=== PATIENT | female | born 1940 | race Caucasian/White ===

== ENCOUNTER → 2020-03-29 | Outpatient (CLI) | payer MEDICARE ==
[2020-03-29 14:11] LABS: BASO % 0.5 % (0.0-2.0); EOS # 0.1 (0.0-0.7); EOS % 1.6 % (0-4.0); GRAN # 2.8 (1.4-6.5); GRAN % 73.6 % (42.2-75.2); HEMOGLOBIN 11.3 g/dl (12.5-16.0); LYMPH # 0.5 (1.2-3.4); LYMPH % 13.1 % (20.0-51.0); MEAN CELL VOLUME 96 fl (80.0-100.0); MEAN CORPUSCULAR HEMOGLOBIN 32 pg (27.0-31.0); MEAN CORPUSCULAR HGB CONC 34 g/dl (33.0-37.0); MEAN PLATELET VOLUME 11.8 fl (7.4-10.4); MONO # 0.4 (0.1-0.6); MONO % 10.9 % (1.7-9.3); PLATELET COUNT 184 K/mm3 (130-400); RED BLOOD COUNT 3.49 M/mm3 (4.10-5.30); REDCELL DISTRIBUTION WIDTH-CV 13.9 % (11.5-14.5)
[2020-03-29 14:16] LABS: ALBUMIN 3.5 gm/dL (3.5-5.0); BILIRUBIN,TOTAL 0.8 mg/dL (0.0-1.0); CALCIUM 9.2 mg/dL (8.4-10.2); CREATININE, serum 0.79 (0.52-1.25); POTASSIUM 3.6 mmol/L (3.4-5.0); TOTAL PROTEIN 7.9 gm/dL (6.4-8.2)
[2020-03-29 14:18] LABS: HEMATOCRIT 33.4 % (37.0-47.0)
[2020-03-29 15:28] LABS: THYROID STIMULATING HORMONE 0.018 uIU/mL (0.465-4.680)
== END ==
LOC: ZLAB.STJ 13:29
PROVIDERS: Family Medicine
DX: D64.9 Anemia, unspecified (principal); E11.9 Type 2 diabetes mellitus without complications; E03.9 Hypothyroidism, unspecified; I10 Essential (primary) hypertension

== ENCOUNTER → 2020-05-03 | Outpatient (CLI) | payer MEDICARE ==
[2020-05-03 12:23] LABS: BILIRUBIN,TOTAL 0.7 mg/dL (0.0-1.0); CALCIUM 9.5 mg/dL (8.4-10.2); CREATININE, serum 0.84 (0.52-1.25); POTASSIUM 3.8 mmol/L (3.4-5.0); TOTAL PROTEIN 8.1 gm/dL (6.4-8.2)
== END ==
LOC: ZLAB.STJ 11:46
PROVIDERS: Family Medicine
DX: I10 Essential (primary) hypertension (principal)

== ENCOUNTER → 2020-06-04 | Outpatient (CLI) | payer MEDICARE ==
[2020-06-04 12:26] LABS: CALCIUM 9.1 mg/dL (8.4-10.2); CREATININE, serum 0.88 (0.52-1.25); POTASSIUM 4.6 mmol/L (3.4-5.0)
== END ==
LOC: ZLAB.STJ 11:55
PROVIDERS: Family Medicine
DX: E87.1 Hypo-osmolality and hyponatremia (principal)

== ENCOUNTER → 2020-07-25 | Outpatient (CLI) | payer MEDICARE, MEDICAID ==
[2020-07-25 11:56] LABS: BASO % 0.6 % (0.0-2.0); EOS # 0.1 (0.0-0.7); EOS % 3.6 % (0-4.0); GRAN # 2.6 (1.4-6.5); GRAN % 72.3 % (42.2-75.2); HEMOGLOBIN 11.2 g/dl (12.5-16.0); LYMPH # 0.4 (1.2-3.4); LYMPH % 10.2 % (20.0-51.0); MEAN CELL VOLUME 94 fl (80.0-100.0); MEAN CORPUSCULAR HEMOGLOBIN 32 pg (27.0-31.0); MEAN CORPUSCULAR HGB CONC 34 g/dl (33.0-37.0); MEAN PLATELET VOLUME 11.5 fl (7.4-10.4); MONO # 0.5 (0.1-0.6); PLATELET COUNT 194 K/mm3 (130-400); RED BLOOD COUNT 3.48 M/mm3 (4.10-5.30); REDCELL DISTRIBUTION WIDTH-CV 14.4 % (11.5-14.5)
[2020-07-25 12:02] LABS: ALBUMIN 3.7 gm/dL (3.5-5.0); BILIRUBIN,TOTAL 0.9 mg/dL (0.0-1.0); CALCIUM 9.3 mg/dL (8.4-10.2); CREATININE, serum 0.97 (0.52-1.25); POTASSIUM 3.7 mmol/L (3.4-5.0); TOTAL PROTEIN 7.8 gm/dL (6.4-8.2)
[2020-07-25 12:03] LABS: HEMATOCRIT 32.7 % (37.0-47.0)
== END ==
LOC: ZLAB.STJ 10:39
DX: I10 Essential (primary) hypertension (principal); L29.9 Pruritus, unspecified

== ENCOUNTER → 2020-09-14 | Outpatient (CLI) | payer MEDICARE, MEDICAID | LOC: ZLAB.STJ 11:59 | DX: D51.9 Vitamin B12 deficiency anemia, unspecified (principal) ==

== ENCOUNTER → 2020-09-28 | Outpatient (CLI) | payer MEDICARE, MEDICAID | LOC: ZLAB.STJ 13:17 | DX: E03.9 Hypothyroidism, unspecified (principal) ==

== ENCOUNTER → 2020-10-01 | Outpatient (CLI) | payer MEDICARE, MEDICAID ==
[2020-10-01 15:45] LABS: COLLECTION METHOD CLEAN CATCH
[2020-10-01 16:12] LABS: PH 5 (5-8); URINE APPEARANCE Cloudy; URINE BACTERIA Rare /hpf; URINE BILIRUBIN Negative (NEGATIVE); URINE BLOOD Negative (NEGATIVE); URINE COLOR Yellow; URINE GLUCOSE Negative (NEGATIVE); URINE KETONE Negative (NEGATIVE); URINE LEUKOCYTE ESTERASE 3+ (NEGATIVE); URINE NITRATE Positive (NEGATIVE); URINE PROTEIN(semi-quant) Negative (NEGATIVE); URINE UROBILINOGEN Negative (NEGATIVE)
== END ==
LOC: ZLAB.STJ 15:39
DX: N39.0 Urinary tract infection, site not specified (principal)

== ENCOUNTER → 2020-11-22 | Outpatient (CLI) | payer MEDICARE, MEDICAID ==
[2020-11-22 11:12] LABS: COLLECTION METHOD CLEAN CATCH
[2020-11-22 11:45] LABS: PH 8 (5-8); SQUAMOUS EPITHELIAL 0-2 /hpf; URINE APPEARANCE Cloudy; URINE BACTERIA Occasional /hpf; URINE BILIRUBIN Negative (NEGATIVE); URINE BLOOD Negative (NEGATIVE); URINE COLOR Yellow; URINE GLUCOSE Negative (NEGATIVE); URINE KETONE Negative (NEGATIVE); URINE LEUKOCYTE ESTERASE 3+ (NEGATIVE); URINE NITRATE Positive (NEGATIVE); URINE PROTEIN(semi-quant) Negative (NEGATIVE); URINE TRIPLE PHOSPHATE CRYSTAL Present /hpf; URINE UROBILINOGEN Negative (NEGATIVE)
== END ==
LOC: ZLAB.STJ 10:03
PROVIDERS: Family Medicine
DX: N39.0 Urinary tract infection, site not specified (principal)

== ENCOUNTER → 2021-01-01 | Outpatient (CLI) | payer MEDICARE, MEDICAID ==
[2021-01-01 12:50] LABS: BASO % 0.6 % (0.0-2.0); EOS # 0.1 (0.0-0.7); EOS % 2.4 % (0-4.0); GRAN # 2.4 (1.4-6.5); GRAN % 73.5 % (42.2-75.2); HEMOGLOBIN 12.3 g/dl (12.5-16.0); LYMPH # 0.2 (1.2-3.4); MEAN CELL VOLUME 96 fl (80.0-100.0); MEAN CORPUSCULAR HEMOGLOBIN 33 pg (27.0-31.0); MEAN CORPUSCULAR HGB CONC 34 g/dl (33.0-37.0); MEAN PLATELET VOLUME 11.3 fl (7.4-10.4); MONO # 0.5 (0.1-0.6); MONO % 16.2 % (1.7-9.3); PLATELET COUNT 153 K/mm3 (130-400); RED BLOOD COUNT 3.77 M/mm3 (4.10-5.30); REDCELL DISTRIBUTION WIDTH-CV 13.8 % (11.5-14.5)
[2021-01-01 13:03] LABS: HEMATOCRIT 36.1 % (37.0-47.0)
[2021-01-01 13:12] LABS: ALBUMIN 3.6 gm/dL (3.5-5.0); BILIRUBIN,TOTAL 0.8 mg/dL (0.0-1.0); CALCIUM 9.2 mg/dL (8.4-10.2); CREATININE, serum 0.76 (0.52-1.25); POTASSIUM 3.7 mmol/L (3.4-5.0); TOTAL PROTEIN 7.5 gm/dL (6.4-8.2)
[2021-01-01 13:42] LABS: THYROID STIMULATING HORMONE 0.032 uIU/mL (0.465-4.680)
== END ==
LOC: ZLAB.STJ 12:15
PROVIDERS: Family Medicine
DX: I10 Essential (primary) hypertension (principal); E03.9 Hypothyroidism, unspecified; E11.9 Type 2 diabetes mellitus without complications; D64.9 Anemia, unspecified

== ENCOUNTER → 2021-01-22 | Outpatient (CLI) | payer MEDICARE, MEDICAID ==
[2021-01-22 12:53] LABS: COLLECTION METHOD CLEAN CATCH
[2021-01-22 13:08] LABS: AMORPHOUS CRYSTAL Present /uL; MUCOUS Present /lpf; PH 6 (5-8); URINE APPEARANCE Cloudy; URINE BACTERIA Moderate /hpf; URINE BILIRUBIN Negative (NEGATIVE); URINE BLOOD Negative (NEGATIVE); URINE COLOR Yellow; URINE GLUCOSE Negative (NEGATIVE); URINE KETONE Negative (NEGATIVE); URINE LEUKOCYTE ESTERASE 3+ (NEGATIVE); URINE NITRATE Positive (NEGATIVE); URINE PROTEIN(semi-quant) Negative (NEGATIVE); URINE UROBILINOGEN Negative (NEGATIVE)
== END ==
LOC: ZLAB.STJ 12:33
PROVIDERS: Family Medicine
DX: N39.0 Urinary tract infection, site not specified (principal)

== ENCOUNTER → 2021-03-27 | Outpatient (CLI) | payer MEDICARE, MEDICAID ==
[2021-03-27 14:07] LABS: BASO % 0.8 % (0.0-2.0); EOS # 0.2 (0.0-0.7); GRAN # 2.5 (1.4-6.5); GRAN % 68.2 % (42.2-75.2); HEMATOCRIT 37.4 % (37.0-47.0); HEMOGLOBIN 12.6 g/dl (12.5-16.0); LYMPH # 0.5 (1.2-3.4); LYMPH % 13.6 % (20.0-51.0); MEAN CELL VOLUME 98 fl (80.0-100.0); MEAN CORPUSCULAR HEMOGLOBIN 33 pg (27.0-31.0); MEAN CORPUSCULAR HGB CONC 34 g/dl (33.0-37.0); MEAN PLATELET VOLUME 11.3 fl (7.4-10.4); MONO # 0.4 (0.1-0.6); MONO % 10.9 % (1.7-9.3); PLATELET COUNT 250 K/mm3 (130-400); RED BLOOD COUNT 3.82 M/mm3 (4.10-5.30); REDCELL DISTRIBUTION WIDTH-CV 13.9 % (11.5-14.5)
[2021-03-27 14:19] LABS: ALBUMIN 3.9 gm/dL (3.5-5.0); BILIRUBIN,TOTAL 0.5 mg/dL (0.0-1.0); CALCIUM 9.4 mg/dL (8.4-10.2); CREATININE, serum 0.84 (0.52-1.25); POTASSIUM 4.4 mmol/L (3.4-5.0); TOTAL PROTEIN 8.3 gm/dL (6.4-8.2)
[2021-03-27 15:08] LABS: THYROID STIMULATING HORMONE 0.314 uIU/mL (0.465-4.680)
== END ==
LOC: ZLAB.STJ 13:00
PROVIDERS: Family Medicine
DX: I10 Essential (primary) hypertension (principal); E03.9 Hypothyroidism, unspecified

== ENCOUNTER → 2021-06-18 | Outpatient (CLI) | payer MEDICARE, MEDICAID ==
[2021-06-18 11:30] LABS: BASO % 0.6 % (0.0-2.0); CALCIUM 9.1 mg/dL (8.4-10.2); CREATININE, serum 0.85 mg/dL (0.57-1.11); EOS # 0.1 K/mm3 (0.0-0.7); EOS % 4.5 % (0-4.0); GRAN # 2.3 K/mm3 (1.4-6.5); GRAN % 74.3 % (42.2-75.2); HEMOGLOBIN 11.8 g/dl (12.5-16.0); LYMPH # 0.3 K/mm3 (1.2-3.4); MEAN CELL VOLUME 97 fl (80.0-100.0); MEAN CORPUSCULAR HEMOGLOBIN 33 pg (27.0-31.0); MEAN CORPUSCULAR HGB CONC 34 g/dl (33.0-37.0); MEAN PLATELET VOLUME 11.6 fl (7.4-10.4); MONO # 0.4 K/mm3 (0.1-0.6); MONO % 11.3 % (1.7-9.3); PLATELET COUNT 197 K/mm3 (130-400); POTASSIUM 3.9 mmol/L (3.5-4.5); RED BLOOD COUNT 3.57 M/mm3 (4.10-5.30); REDCELL DISTRIBUTION WIDTH-CV 13.2 % (11.5-14.5)
[2021-06-18 11:31] LABS: HEMATOCRIT 34.5 % (37.0-47.0)
[2021-06-18 11:32] LABS: THYROID STIMULATING HORMONE 0.1 uIU/mL (0.350-4.940)
== END ==
LOC: ZLAB.STJ 11:07
PROVIDERS: Family Medicine
DX: I10 Essential (primary) hypertension (principal); E03.9 Hypothyroidism, unspecified; D64.9 Anemia, unspecified; E11.9 Type 2 diabetes mellitus without complications

== ENCOUNTER → 2021-06-25 | Outpatient (CLI) | payer MEDICARE, MEDICAID ==
[2021-06-25 14:28] LABS: COLLECTION METHOD CLEAN CATCH
[2021-06-25 14:40] LABS: PH 6 (5-8); URINE APPEARANCE Hazy; URINE BACTERIA Occasional /hpf; URINE BILIRUBIN Negative (NEGATIVE); URINE BLOOD Negative (NEGATIVE); URINE COLOR Yellow; URINE GLUCOSE Negative (NEGATIVE); URINE KETONE Negative (NEGATIVE); URINE LEUKOCYTE ESTERASE 1+ (NEGATIVE); URINE NITRATE Negative (NEGATIVE); URINE PROTEIN(semi-quant) Negative (NEGATIVE); URINE RBC 0-2 /hpf; URINE UROBILINOGEN Negative (NEGATIVE)
== END ==
LOC: ZLAB.STJ 13:36
PROVIDERS: Family Medicine
DX: N39.0 Urinary tract infection, site not specified (principal)

== ENCOUNTER → 2021-06-30 | Outpatient (CLI) | payer MEDICARE, MEDICAID ==
[2021-06-30 17:07] LABS: COLLECTION METHOD CLEAN CATCH
[2021-06-30 17:17] LABS: PH 7 (5-8); SQUAMOUS EPITHELIAL 0-2 /hpf (0-10); URINE APPEARANCE Clear (CLEAR/HAZY); URINE BACTERIA None Seen (NONE SEEN); URINE BILIRUBIN Negative (NEGATIVE); URINE BLOOD Negative (NEGATIVE); URINE COLOR Yellow (YELLOW); URINE GLUCOSE Negative (NEGATIVE); URINE KETONE Negative (NEGATIVE); URINE LEUKOCYTE ESTERASE Negative (NEGATIVE); URINE NITRATE Negative (NEGATIVE); URINE PROTEIN(semi-quant) Negative (NEGATIVE); URINE RBC 0-2 /hpf (0-2); URINE UROBILINOGEN Negative (NEGATIVE)
== END ==
LOC: ZLAB.STJ 15:49
PROVIDERS: Family Medicine
DX: R31.9 Hematuria, unspecified (principal)

== ENCOUNTER → 2021-07-26 | Outpatient (CLI) | payer MEDICARE, MEDICAID ==
[2021-07-26 17:40] LABS: BASO % 0.6 % (0.0-2.0); EOS # 0.1 K/mm3 (0.0-0.7); EOS % 2.8 % (0.0-4.0); GRAN # 2.5 K/mm3 (1.4-6.5); GRAN % 70.4 % (42.2-75.2); HEMOGLOBIN 11.8 g/dl (12.5-16.0); LYMPH # 0.3 K/mm3 (1.2-3.4); LYMPH % 8.9 % (20.0-51.0); MEAN CELL VOLUME 98 fl (80.0-100.0); MEAN CORPUSCULAR HEMOGLOBIN 33 pg (27-31); MEAN CORPUSCULAR HGB CONC 34 g/dl (33.0-37.0); MEAN PLATELET VOLUME 11.4 fl (7.4-10.4); MONO # 0.6 K/mm3 (0.1-0.6); PLATELET COUNT 213 K/mm3 (130-400); RED BLOOD COUNT 3.57 M/mm3 (4.10-5.30)
[2021-07-26 17:50] LABS: ALANINE AMINOTRANSFERASE 15 U/L (0-55); ALBUMIN 3.4 gm/dL (3.4-4.8); ALKALINE PHOSPHATASE 148 U/L (40-150); ANION GAP 10 mmol/L (7-16); AST,SGOT 27 U/L (5-34); BILIRUBIN,TOTAL 0.8 mg/dL (0.2-1.2); BLOOD UREA NITROGEN 14 mg/dL (10-20); CALCIUM 8.9 mg/dL (8.4-10.2); CARBON DIOXIDE 22 mmol/L (23-31); CHLORIDE 98 mmol/L (98-107); CREATININE, serum 0.95 mg/dL (0.57-1.11); GLUCOSE 82 mg/dL (70-99); POTASSIUM 3.9 mmol/L (3.5-4.5); SODIUM 130 mmol/L (136-145); TOTAL PROTEIN 7.8 gm/dL (6.2-8.1)
== END ==
LOC: ZLAB.STJ 16:55
PROVIDERS: Family Medicine
DX: D64.9 Anemia, unspecified (principal); E11.9 Type 2 diabetes mellitus without complications

== ENCOUNTER → 2021-08-15 | Outpatient (CLI) | payer MEDICARE, MEDICAID ==
[2021-08-15 09:38] LABS: COLLECTION METHOD CLEAN CATCH
[2021-08-15 10:08] LABS: MUCOUS Present (NOT PRESENT); PH 8 (5-8); SQUAMOUS EPITHELIAL 0-2 /hpf (0-10); URINE APPEARANCE Cloudy (CLEAR/HAZY); URINE BACTERIA Rare /hpf (NONE SEEN); URINE BILIRUBIN Negative (NEGATIVE); URINE BLOOD Negative (NEGATIVE); URINE COLOR Yellow (YELLOW); URINE GLUCOSE Negative (NEGATIVE); URINE KETONE Negative (NEGATIVE); URINE LEUKOCYTE ESTERASE 3+ (NEGATIVE); URINE NITRATE Positive (NEGATIVE); URINE PROTEIN(semi-quant) Negative (NEGATIVE); URINE UROBILINOGEN Negative (NEGATIVE)
== END ==
LOC: ZLAB.STJ 09:35
PROVIDERS: Internal Medicine
DX: N39.0 Urinary tract infection, site not specified (principal)

== ENCOUNTER → 2021-08-19 | Outpatient (CLI) | payer MEDICARE, MEDICAID ==
[2021-08-19 15:40] LABS: ALBUMIN 3.5 gm/dL (3.4-4.8); BILIRUBIN,TOTAL 0.6 mg/dL (0.2-1.2); CALCIUM 8.8 mg/dL (8.4-10.2); CREATININE, serum 1.32 mg/dL (0.57-1.11); POTASSIUM 4.2 mmol/L (3.5-4.5); TOTAL PROTEIN 7.5 gm/dL (6.2-8.1)
[2021-08-19 16:00] LABS: THYROID STIMULATING HORMONE 1.116 uIU/mL (0.350-4.940)
== END ==
LOC: ZLAB.STJ 13:20
PROVIDERS: Internal Medicine
DX: E03.9 Hypothyroidism, unspecified (principal); I10 Essential (primary) hypertension; D64.9 Anemia, unspecified

== ENCOUNTER → 2021-09-24 | Outpatient (CLI) | payer MEDICARE, MEDICAID ==
[2021-09-24 10:09] LABS: POTASSIUM 4.2 mmol/L (3.5-4.5)
[2021-09-24 10:30] LABS: THYROID STIMULATING HORMONE 2.391 uIU/mL (0.350-4.940)
== END ==
LOC: ZLAB.STJ 09:24
PROVIDERS: Internal Medicine
DX: I10 Essential (primary) hypertension (principal); E03.9 Hypothyroidism, unspecified

== ENCOUNTER → 2021-10-18 | Outpatient (CLI) | payer MEDICARE, MEDICAID ==
[2021-10-18 09:31] LABS: COLLECTION METHOD CLEAN CATCH
[2021-10-18 09:55] LABS: MUCOUS Present (NOT PRESENT); PH 9 (5-8); SQUAMOUS EPITHELIAL 20-50 /hpf (0-10); URINE APPEARANCE Cloudy (CLEAR/HAZY); URINE BACTERIA Rare /hpf (NONE SEEN); URINE BILIRUBIN Negative (NEGATIVE); URINE BLOOD Negative (NEGATIVE); URINE COLOR Yellow (YELLOW); URINE GLUCOSE Negative (NEGATIVE); URINE KETONE Negative (NEGATIVE); URINE LEUKOCYTE ESTERASE 3+ (NEGATIVE); URINE NITRATE Negative (NEGATIVE); URINE PROTEIN(semi-quant) Negative (NEGATIVE); URINE UROBILINOGEN Negative (NEGATIVE)
== END ==
LOC: ZLAB.STJ 09:15
PROVIDERS: Internal Medicine
DX: N39.0 Urinary tract infection, site not specified (principal)

== ENCOUNTER → 2021-10-22 | Outpatient (CLI) | payer MEDICARE, MEDICAID ==
[2021-10-22 16:29] LABS: PH 7 (5-8); URINE APPEARANCE Cloudy (CLEAR/HAZY); URINE BACTERIA Rare /hpf (NONE SEEN); URINE BILIRUBIN Negative (NEGATIVE); URINE BLOOD Negative (NEGATIVE); URINE COLOR Yellow (YELLOW); URINE GLUCOSE Negative (NEGATIVE); URINE KETONE Negative (NEGATIVE); URINE LEUKOCYTE ESTERASE 3+ (NEGATIVE); URINE NITRATE Negative (NEGATIVE); URINE PROTEIN(semi-quant) Negative (NEGATIVE); URINE RBC 0-2 /hpf (0-2); URINE UROBILINOGEN Negative (NEGATIVE)
[2021-10-22 17:01] LABS: COLLECTION METHOD CLEAN CATCH
== END ==
LOC: ZLAB.STJ 15:17
PROVIDERS: Internal Medicine
DX: N39.0 Urinary tract infection, site not specified (principal)

== ENCOUNTER → 2021-10-23 | Outpatient (CLI) | payer MEDICARE, MEDICAID ==
[2021-10-23 13:13] LABS: CREATININE, serum 1.1 mg/dL (0.57-1.11); POTASSIUM 4.2 mmol/L (3.5-4.5)
== END ==
LOC: ZLAB.STJ 12:44
PROVIDERS: Internal Medicine
DX: I10 Essential (primary) hypertension (principal)

== ENCOUNTER → 2021-11-01 | Outpatient (CLI) | payer MEDICARE, MEDICAID ==
[2021-11-01 12:40] LABS: ALBUMIN 3.3 gm/dL (3.4-4.8); BASO % 0.4 % (0.0-2.0); BILIRUBIN,TOTAL 0.6 mg/dL (0.2-1.2); CREATININE, serum 1.08 mg/dL (0.57-1.11); EOS # 0.1 K/mm3 (0.0-0.7); EOS % 1.6 % (0.0-4.0); GRAN % 81.9 % (42.2-75.2); HEMOGLOBIN 11.8 g/dl (12.5-16.0); LYMPH # 0.3 K/mm3 (1.2-3.4); LYMPH % 5.8 % (20.0-51.0); MEAN CELL VOLUME 100 fl (80.0-100.0); MEAN CORPUSCULAR HEMOGLOBIN 34 pg (27-31); MEAN CORPUSCULAR HGB CONC 34 g/dl (33.0-37.0); MEAN PLATELET VOLUME 11.9 fl (7.4-10.4); MONO # 0.5 K/mm3 (0.1-0.6); MONO % 9.9 % (1.7-9.3); PLATELET COUNT 166 K/mm3 (130-400)
[2021-11-01 12:41] LABS: HEMATOCRIT 34.9 % (37.0-47.0)
== END ==
LOC: ZLAB.STJ 12:34
PROVIDERS: Internal Medicine
DX: Z13.228 Encounter for screening for other metabolic disorders (principal); R79.9 Abnormal finding of blood chemistry, unspecified

== ENCOUNTER → 2021-12-10 | Outpatient (CLI) | payer MEDICARE, MEDICAID | LOC: ZLAB.STJ 10:29 | DX: D51.9 Vitamin B12 deficiency anemia, unspecified (principal) ==

== ENCOUNTER → 2021-12-31 | Outpatient (CLI) | payer MEDICARE, MEDICAID | LOC: ZLAB.STJ 09:13 | DX: E11.9 Type 2 diabetes mellitus without complications (principal) ==

== ENCOUNTER 2022-02-08 17:47 | Emergency (ER) | payer MEDICARE, MEDICAID ==
[~2022-02-08] VITALS: Ht 170.2 cm; Wt 74.5 kg
[2022-02-08 17:50] VITALS: TEMP 97.2
[2022-02-08 18:52] LABS: BASO % 0.7 % (0.0-2.0); EOS # 0.1 K/mm3 (0.0-0.7); GRAN # 2.2 K/mm3 (1.4-6.5); GRAN % 73.8 % (42.2-75.2); HEMOGLOBIN 11.8 g/dl (12.5-16.0); LYMPH # 0.4 K/mm3 (1.2-3.4); LYMPH % 12.8 % (20.0-51.0); MEAN CELL VOLUME 95 fl (80.0-100.0); MEAN CORPUSCULAR HEMOGLOBIN 33 pg (27-31); MEAN CORPUSCULAR HGB CONC 35 g/dl (33.0-37.0); MEAN PLATELET VOLUME 9.7 fl (7.4-10.4); MONO # 0.3 K/mm3 (0.1-0.6); MONO % 10.4 % (1.7-9.3); PLATELET COUNT 176 K/mm3 (130-400); RED BLOOD COUNT 3.53 M/mm3 (4.10-5.30); REDCELL DISTRIBUTION WIDTH-CV 13.3 % (11.5-14.5)
[2022-02-08 18:57] LABS: HEMATOCRIT 33.5 % (37.0-47.0)
[2022-02-08 19:06] LABS: ALBUMIN 3.2 gm/dL (3.4-4.8); BILIRUBIN,TOTAL 0.6 mg/dL (0.2-1.2); C-REACTIVE PROTEIN 0.33 mg/dL (0.00-0.50); CREATININE, serum 1.05 mg/dL (0.57-1.11); POTASSIUM 3.9 mmol/L (3.5-4.5); TOTAL PROTEIN 7.7 gm/dL (6.2-8.1)
[2022-02-08 19:19] LABS: COLLECTION METHOD CATHETER
[2022-02-08 19:28] LABS: PH 8 (5-8); URINE APPEARANCE Hazy (CLEAR/HAZY); URINE BACTERIA None Seen /hpf (NONE SEEN); URINE BILIRUBIN Negative (NEGATIVE); URINE BLOOD Negative (NEGATIVE); URINE COLOR Yellow (YELLOW); URINE GLUCOSE Negative (NEGATIVE); URINE KETONE Negative (NEGATIVE); URINE LEUKOCYTE ESTERASE Negative (NEGATIVE); URINE NITRATE Negative (NEGATIVE); URINE PROTEIN(semi-quant) Negative (NEGATIVE); URINE RBC None Seen /hpf (0-2); URINE UROBILINOGEN Negative (NEGATIVE)
[2022-02-08 20:10] VITALS: BP 178/90; PULSE 60
== END 2022-02-08 20:13 | disposition home or self-care (01) ==
LOC: COL.ER 17:47
PROVIDERS: Nurse Practitioner
DX: R41.0 Disorientation, unspecified (principal); Z87.891 Personal history of nicotine dependence; Z20.822 Contact with and (suspected) exposure to COVID-19
CPT/HCPCS: J7030

== ENCOUNTER → 2022-02-13 | Outpatient (CLI) | payer MEDICARE, MEDICAID ==
[2022-02-13 15:49] LABS: CALCIUM 9.1 mg/dL (8.4-10.2); CREATININE, serum 1.06 mg/dL (0.57-1.11); POTASSIUM 3.6 mmol/L (3.5-4.5)
== END ==
LOC: ZLAB.STJ 15:34
PROVIDERS: Internal Medicine
DX: E78.5 Hyperlipidemia, unspecified (principal)

== ENCOUNTER → 2022-03-06 | Outpatient (CLI) | payer MEDICARE, MEDICAID ==
[~2022-03-06] MED LIST: B-12 500 MCG PO; CEPHALEXIN500 M1 PO; CLOTRIMAZOLE ANTIF1% TP; COLACE 100100 MG/CAP PO; FOLIC ACID 11 MG/TA1 PO; FOSAMAX 70MG TA70 MG PO; HYDROCIL INSTA300 GM PO; HYDROCORTISONE30 G3 TP; HYGROTON 2525 MG/TAB PO; LEVAQUIN 750MG750 M1 PO; LIPITOR 40MG TA40 MG PO; METHOTREXA2.5 MG/TAB PO; MILK OF MA400 MG/52 PO; MIRALAX PA17 GM/Dose PO; PREMARIN VAG42.5 GM VG; PRIL40 PO; PRINIVIL5 MG PO; REQUIP 1MG T1 MG/TAB PO; SALAGEN 5MG TAB5 MG PO; TIROSINT50 MC1 PO; TOPROL XL 25MG25 MG PO; TRIAMCINOLONE A15 GM TP; TUMS500 MG PO; TYLENOL 325MG325 MG PO; VITAMIN D31000 IU PO; ZOFRAN 4MG T4 MG/TAB PO
[2022-03-06 17:27] LABS: BASO % 0.1 % (0.0-2.0); EOS % 0.2 % (0.0-4.0); GRAN # 7.8 K/mm3 (1.4-6.5); GRAN % 86.6 % (42.2-75.2); HEMOGLOBIN 12.5 g/dl (12.5-16.0); LYMPH # 0.6 K/mm3 (1.2-3.4); LYMPH % 6.3 % (20.0-51.0); MEAN CELL VOLUME 97 fl (80.0-100.0); MEAN CORPUSCULAR HEMOGLOBIN 34 pg (27-31); MEAN CORPUSCULAR HGB CONC 35 g/dl (33.0-37.0); MEAN PLATELET VOLUME 11.9 fl (7.4-10.4); MONO # 0.5 K/mm3 (0.1-0.6); MONO % 5.8 % (1.7-9.3); PLATELET COUNT 172 K/mm3 (130-400); RED BLOOD COUNT 3.71 M/mm3 (4.10-5.30); REDCELL DISTRIBUTION WIDTH-CV 13.7 % (11.5-14.5)
[2022-03-06 17:30] LABS: HEMATOCRIT 35.8 % (37.0-47.0)
[2022-03-06 17:41] LABS: C-REACTIVE PROTEIN 0.16 mg/dL (0.00-0.50); CREATININE, serum 1.13 mg/dL (0.57-1.11)
[2022-03-06 17:52] LABS: ERYTHROCYTE SEDIMENTATION RATE 26 mm/hr (0-30)
[2022-03-07 16:45] LABS: HEPATITIS B SURFACE ANTIBODY 86.9 (()); HEPATITIS B SURFACE ANTIGEN Negative (Negative); HEPATITIS C VIRUS ANTIBODY Negative (Negative)
[2022-03-07 19:58] LABS: COMPLEMENT-C3 99 mg/dL (83-193); COMPLEMENT-C4 21 mg/dL (15-57)
[2022-03-11 14:31] LABS: A/G RATIO (PEP) 0.78 (()); BETA GLOBULINS (PEP) 0.9 g/dL (0.7-1.2)
== END ==
LOC: ZLAB.STJ 16:31
PROVIDERS: Internal Medicine Rheumatology
DX: M35.00 Sjogren syndrome, unspecified (principal)

== ENCOUNTER → 2022-03-19 | Outpatient (CLI) | payer MEDICARE, MEDICAID | LOC: ZLAB.STJ 10:34 | DX: M35.00 Sjogren syndrome, unspecified (principal) ==

== ENCOUNTER 2022-03-20 06:08 | Emergency (ER) | payer MEDICARE, MEDICAID ==
[~2022-03-20] VITALS: Ht 165.1 cm; Wt 81.8 kg
[2022-03-20 06:11] VITALS: TEMP 99.2
[2022-03-20 06:29] LABS: COLLECTION METHOD CATHETER
[2022-03-20 06:46] LABS: URINE BACTERIA Rare /hpf (NONE SEEN); URINE RBC 0-2 /hpf (0-2)
[2022-03-20 06:51] LABS: ALBUMIN 3.1 gm/dL (3.4-4.8); BILIRUBIN,TOTAL 0.7 mg/dL (0.2-1.2); CREATININE, serum 1.05 mg/dL (0.57-1.11); POTASSIUM 3.5 mmol/L (3.5-4.5); TOTAL PROTEIN 6.9 gm/dL (6.2-8.1)
[2022-03-20 06:52] LABS: URINE COLOR Yellow (YELLOW)
[2022-03-20 06:53] LABS: PH 7 (5-8); URINE APPEARANCE Hazy (CLEAR/HAZY); URINE BLOOD Negative (NEGATIVE); URINE GLUCOSE Negative (NEGATIVE); URINE KETONE Negative (NEGATIVE); URINE NITRATE Negative (NEGATIVE); URINE PROTEIN(semi-quant) Negative (NEGATIVE); URINE UROBILINOGEN Negative (NEGATIVE)
[2022-03-20] MEDS ORDERED: CEPHALEXIN500 M1 PO (06:58)
[2022-03-20 07:07] LABS: BASO % 0.4 % (0.0-2.0); EOS # 0.1 K/mm3 (0.0-0.7); EOS % 0.8 % (0.0-4.0); GRAN # 6.4 K/mm3 (1.4-6.5); GRAN % 83.1 % (42.2-75.2); HEMOGLOBIN 11.8 g/dl (12.5-16.0); LYMPH # 0.4 K/mm3 (1.2-3.4); MEAN CELL VOLUME 97 fl (80.0-100.0); MEAN CORPUSCULAR HEMOGLOBIN 34 pg (27-31); MEAN CORPUSCULAR HGB CONC 35 g/dl (33.0-37.0); MEAN PLATELET VOLUME 10.6 fl (7.4-10.4); MONO # 0.8 K/mm3 (0.1-0.6); MONO % 10.3 % (1.7-9.3); PLATELET COUNT 150 K/mm3 (130-400); RED BLOOD COUNT 3.47 M/mm3 (4.10-5.30); REDCELL DISTRIBUTION WIDTH-CV 13.5 % (11.5-14.5)
[2022-03-20 07:22] LABS: HEMATOCRIT 33.7 % (37.0-47.0)
[2022-03-20 07:26] VITALS: BP 151/78; PULSE 61
[2022-03-20] MEDS ORDERED: LIPITOR 40MG TA40 MG PO (19:23)
[2022-03-20] MEDS ORDERED: HYGROTON 2525 MG/TAB PO (19:24)
[2022-03-20] MEDS ORDERED: FOLIC ACID 11 MG/TA1 PO (19:24)
[2022-03-20] MEDS ORDERED: SALAGEN 5MG TAB5 MG PO (19:25)
[2022-03-20] MEDS ORDERED: PRIL40 PO (19:26)
[2022-03-20] MEDS ORDERED: TYLENOL 325MG325 MG PO (19:26)
[2022-03-20] MEDS ORDERED: COLACE 100100 MG/CAP PO (19:30)
[2022-03-20] MEDS ORDERED: MIRALAX PA17 GM/Dose PO (19:30)
[2022-03-20] MEDS ORDERED: TIROSINT50 MC1 PO (19:31)
[2022-03-20] MEDS ORDERED: VITAMIN D31000 IU PO (19:38)
[2022-03-20] MEDS ORDERED: REQUIP 1MG T1 MG/TAB PO (19:38)
[2022-03-20] MEDS ORDERED: B-12 500 MCG PO (19:42)
[2022-03-20] MEDS ORDERED: FOSAMAX 70MG TA70 MG PO (19:43)
[2022-03-20] MEDS ORDERED: METHOTREXA2.5 MG/TAB PO (19:44)
[2022-03-20] MEDS ORDERED: TOPROL XL 25MG25 MG PO (19:44)
[2022-03-20] MEDS ORDERED: PREMARIN VAG42.5 GM VG (19:59)
[2022-03-20] MEDS ORDERED: HYDROCIL INSTA300 GM PO (20:01)
[2022-03-20] MEDS ORDERED: TRIAMCINOLONE A15 GM TP (20:02)
[2022-03-20] MEDS ORDERED: MILK OF MA400 MG/52 PO (20:04)
[2022-03-20] MEDS ORDERED: TUMS500 MG PO (20:07)
[2022-03-20] MEDS ORDERED: ZOFRAN 4MG T4 MG/TAB PO (20:08)
[2022-03-20] MEDS ORDERED: HYDROCORTISONE30 G3 TP (20:08)
[2022-03-20] MEDS ORDERED: CLOTRIMAZOLE ANTIF1% TP (20:09)
== END 2022-03-20 07:45 | disposition home or self-care (01) ==
LOC: COL.ER 06:08
PROVIDERS: Personal Emergency Response Attendant
DX: N39.0 Urinary tract infection, site not specified (principal); R41.82 Altered mental status, unspecified; Z20.822 Contact with and (suspected) exposure to COVID-19; Z87.891 Personal history of nicotine dependence
CPT/HCPCS: J0696; J2405

== ENCOUNTER 2022-03-20 13:59 | Inpatient (IN) | payer MEDICARE, MEDICAID ==
[~2022-03-20] VITALS: Wt 88.6 kg
[~2022-03-20 13:59] MED LIST changes: -B-12 500 MCG PO; -CLOTRIMAZOLE ANTIF1% TP; -COLACE 100100 MG/CAP PO; -FOLIC ACID 11 MG/TA1 PO; -FOSAMAX 70MG TA70 MG PO; -HYDROCIL INSTA300 GM PO; -HYDROCORTISONE30 G3 TP; -HYGROTON 2525 MG/TAB PO; -LEVAQUIN 750MG750 M1 PO; -LIPITOR 40MG TA40 MG PO; -METHOTREXA2.5 MG/TAB PO; -MILK OF MA400 MG/52 PO; -MIRALAX PA17 GM/Dose PO; -PREMARIN VAG42.5 GM VG; -PRIL40 PO; -PRINIVIL5 MG PO; -REQUIP 1MG T1 MG/TAB PO; -SALAGEN 5MG TAB5 MG PO; -TIROSINT50 MC1 PO; -TOPROL XL 25MG25 MG PO; -TRIAMCINOLONE A15 GM TP; -TUMS500 MG PO; -TYLENOL 325MG325 MG PO; -VITAMIN D31000 IU PO; -ZOFRAN 4MG T4 MG/TAB PO
[2022-03-20 14:25] LABS: BASO % 0.5 % (0.0-2.0); EOS # 0.1 K/mm3 (0.0-0.7); EOS % 0.8 % (0.0-4.0); GRAN # 5.3 K/mm3 (1.4-6.5); GRAN % 81.8 % (42.2-75.2); HEMOGLOBIN 11.2 g/dl (12.5-16.0); LYMPH # 0.4 K/mm3 (1.2-3.4); LYMPH % 5.9 % (20.0-51.0); MEAN CELL VOLUME 95 fl (80.0-100.0); MEAN CORPUSCULAR HEMOGLOBIN 34 pg (27-31); MEAN CORPUSCULAR HGB CONC 35 g/dl (33.0-37.0); MEAN PLATELET VOLUME 11.5 fl (7.4-10.4); MONO # 0.7 K/mm3 (0.1-0.6); MONO % 10.5 % (1.7-9.3); PLATELET COUNT 138 K/mm3 (130-400); RED BLOOD COUNT 3.32 M/mm3 (4.10-5.30); REDCELL DISTRIBUTION WIDTH-CV 13.7 % (11.5-14.5)
[2022-03-20 14:27] LABS: HEMATOCRIT 31.6 % (37.0-47.0)
[2022-03-20 14:44] LABS: ALBUMIN 2.9 gm/dL (3.4-4.8); BILIRUBIN,TOTAL 0.8 mg/dL (0.2-1.2); CALCIUM 8.4 mg/dL (8.4-10.2); CREATININE, serum 0.97 mg/dL (0.57-1.11); INR 1.1 (0.8-3.0); POTASSIUM 3.8 mmol/L (3.5-4.5); PROTHROMBIN TIME 12.8 SECONDS (9.7-12.8); TOTAL PROTEIN 6.7 gm/dL (6.2-8.1)
[2022-03-20 14:46] LABS: PARTIAL THROMBOPLASTIN TIME 27.4 SECONDS (26.0-37.0)
[2022-03-20 14:52] LABS: TROPONIN-I 0.076 ng/mL (0.00-0.033)
[2022-03-20 17:41] VITALS: BP 146/85; PULSE 57; TEMP 100.3
--- NOTE | 2022-03-20 17:46 | NUR ---
PT IN ROOM 312, PT FEBRILE, OTHER VSS, PT RESTING IN BED, 2L NC, PT ORIENTED TO ROOM, CALL LIGHT IN REACH, FALL PRECAUTIONS IN PLACE
[2022-03-20 18:08] VITALS: BP 102/72; PULSE 50; TEMP 99
[2022-03-20] MEDS ORDERED: LIPITOR 40MG TA40 MG PO (19:23)
[2022-03-20] MEDS ORDERED: HYGROTON 2525 MG/TAB PO (19:24)
[2022-03-20] MEDS ORDERED: FOLIC ACID 11 MG/TA1 PO (19:24)
[2022-03-20] MEDS ORDERED: SALAGEN 5MG TAB5 MG PO (19:25)
[2022-03-20] MEDS ORDERED: PRIL40 PO (19:26)
[2022-03-20] MEDS ORDERED: TYLENOL 325MG325 MG PO (19:26)
[2022-03-20] MEDS ORDERED: MIRALAX PA17 GM/Dose PO (19:30)
[2022-03-20] MEDS ORDERED: COLACE 100100 MG/CAP PO (19:30)
[2022-03-20] MEDS ORDERED: TIROSINT50 MC1 PO (19:31)
[2022-03-20] MEDS ORDERED: VITAMIN D31000 IU PO (19:38)
[2022-03-20] MEDS ORDERED: REQUIP 1MG T1 MG/TAB PO (19:38)
[2022-03-20 19:42] VITALS: BP 107/54; PULSE 47; TEMP 98.2
[2022-03-20] MEDS ORDERED: B-12 500 MCG PO (19:42)
[2022-03-20] MEDS ORDERED: FOSAMAX 70MG TA70 MG PO (19:43)
[2022-03-20] MEDS ORDERED: METHOTREXA2.5 MG/TAB PO (19:44)
[2022-03-20] MEDS ORDERED: TOPROL XL 25MG25 MG PO (19:44)
[2022-03-20] MEDS ORDERED: PREMARIN VAG42.5 GM VG (19:59)
[2022-03-20] MEDS ORDERED: HYDROCIL INSTA300 GM PO (20:01)
[2022-03-20] MEDS ORDERED: TRIAMCINOLONE A15 GM TP (20:02)
[2022-03-20] MEDS ORDERED: MILK OF MA400 MG/52 PO (20:04)
[2022-03-20] MEDS ORDERED: TUMS500 MG PO (20:07)
[2022-03-20] MEDS ORDERED: HYDROCORTISONE30 G3 TP (20:08)
[2022-03-20] MEDS ORDERED: ZOFRAN 4MG T4 MG/TAB PO (20:08)
[2022-03-20] MEDS ORDERED: CLOTRIMAZOLE ANTIF1% TP (20:09)
[2022-03-20 23:59] VITALS: BP 150/75; PULSE 55; TEMP 99.2
[2022-03-21] VITALS (9 sets, daily range): BP systolic 114–159; BP diastolic 44–71; PULSE 18–100; TEMP 97.7–100.3
--- NOTE | 2022-03-21 00:35 | NUR ---
TX GIVEN VIA MASK, TOLERATED WELL.
--- NOTE | 2022-03-21 07:27 | NUR ---
VSS, PT A&O X3, PT FORGETFUL, PT RESTING IN BED, DENIES PAIN, HEPARIN DRIP DOSE REDUCED PER PROTOCOL, DROPLET PRECAUTIONS ACTIVATED, FALL PRECAUTIONS IN PLACE, CALL LIGHT IN REACH
--- NOTE | 2022-03-21 15:53 | NUR ---
Medical Apparatus Model Maker contacted patient's son, Antione (ph#[phone]) to discuss discharge planning as patient is not alert and oriented. Patient lives at [facility] and sees Dr. Barajas for primary care. Patient uses a walker for ambulation and plan is to return to [facility] at time of discharge. Patient has DPOA-HC in chart which designates her sons, Antione and Jaya. SW faxed clinical updates to [facility]. Discharge Plan: [facility]
[2022-03-22 00:50] VITALS: BP 136/49; PULSE 63; TEMP 98.8
--- NOTE | 2022-03-22 00:52 | NUR ---
ANTI XA CAME BACK THERAPEUTIC AT 0015. WILL RE-ORDER ANOTHER ANTI XA IN 6 HOURS.
[2022-03-22 04:53] VITALS: BP 159/55; BP 170/65; PULSE 75; TEMP 99.6
--- NOTE | 2022-03-22 06:42 | NUR ---
VANCO TROUGH CAME BACK AT 20.54. CLAMP TRUCK DRIVER (AKOSUA) NOTIFIED. STATES TO HOLD VANCO. WILL PASS INFORMATION TO 1ST SHIFT NURSE.
[2022-03-22 07:16] VITALS: BP 166/52; PULSE 58; TEMP 98.4
--- NOTE | 2022-03-22 09:00 | NUR ---
Patient is resting in bed, alert and oriented x 4, HTN. Receiving 1L O2 NC. Telemetry in place, NSR. Hep GTT at 7 ml/hr 2 goals. Assessment completed, meds provided. No other needs at thist time. Call light within reach.
[2022-03-22] MEDS ORDERED: LEVAQUIN 750MG750 M1 PO (10:33)
[2022-03-22] MEDS ORDERED: PRINIVIL5 MG PO (10:33)
[2022-03-22 11:30] VITALS: BP 137/49; PULSE 71; TEMP 98.4
--- NOTE | 2022-03-22 14:58 | NUR ---
PT IS DOES NOT WALK SO ASSESSMENT WAS DONE WHILE PT WAS LAYING AND SITTING UP IN BED.
[2022-03-22 15:50] VITALS: BP 137/49; PULSE 71; TEMP 98.4
--- NOTE | 2022-03-22 16:55 | NUR ---
AYLA informed patient would be discharging on this day to [facility]. AYLA called facility staff. DC documenation provided to facility. Virgilio Talbot called to informed. Transportation set up. Nothing further
--- NOTE | 2022-03-22 17:01 | NUR ---
Patient was discharged for [facility]. PPWK provided to medical detail representative. Report given to Adriana Macdonald RN. IV access and Telemetry was discontinued by STANISLAV Jacinto. Pt left room with [facility] medical detail representative.
== END 2022-03-22 16:30 | DRG 193 ==
LOC: COL.ER 13:59 → MEDICAL 16:37
PROVIDERS: Family Medicine; ADMIT Internal Medicine
DX: J18.9 Pneumonia, unspecified organism (principal); I21.A1 Myocardial infarction type 2; N39.0 Urinary tract infection, site not specified; E78.5 Hyperlipidemia, unspecified; E03.9 Hypothyroidism, unspecified; K21.9 Gastro-esophageal reflux disease without esophagitis; M35.00 Sjogren syndrome, unspecified; M81.0 Age-related osteoporosis without current pathological fracture; D64.9 Anemia, unspecified; Z20.822 Contact with and (suspected) exposure to COVID-19; F03.90 Unspecified dementia, unspecified severity, without behavioral disturbance, psychotic disturbance, mood disturbance, and anxiety; I12.9 Hypertensive chronic kidney disease with stage 1 through stage 4 chronic kidney disease, or unspecified chronic kidney disease; E11.22 Type 2 diabetes mellitus with diabetic chronic kidney disease; I44.7 Left bundle-branch block, unspecified; I73.00 Raynaud's syndrome without gangrene; M06.9 Rheumatoid arthritis, unspecified; N18.30 Chronic kidney disease, stage 3 unspecified; Z88.0 Allergy status to penicillin; Z88.8 Allergy status to other drugs, medicaments and biological substances
CPT/HCPCS: OP; 99222-AI; 99232-AI; A9500; G0378; J0692; J1644; J2785; J3370; J7030; J7050; Q9967

== ENCOUNTER → 2022-03-25 | Outpatient (CLI) | payer MEDICARE, MEDICAID ==
[~2022-03-25] MED LIST changes: +B-12 500 MCG PO; +CLOTRIMAZOLE ANTIF1% TP; +COLACE 100100 MG/CAP PO; +FOLIC ACID 11 MG/TA1 PO; +FOSAMAX 70MG TA70 MG PO; +HYDROCIL INSTA300 GM PO; +HYDROCORTISONE30 G3 TP; +HYGROTON 2525 MG/TAB PO; +LEVAQUIN 750MG750 M1 PO; +LIPITOR 40MG TA40 MG PO; +METHOTREXA2.5 MG/TAB PO; +MILK OF MA400 MG/52 PO; +MIRALAX PA17 GM/Dose PO; +PREMARIN VAG42.5 GM VG; +PRIL40 PO; +PRINIVIL5 MG PO; +REQUIP 1MG T1 MG/TAB PO; +SALAGEN 5MG TAB5 MG PO; +TIROSINT50 MC1 PO; +TOPROL XL 25MG25 MG PO; +TRIAMCINOLONE A15 GM TP; +TUMS500 MG PO; +TYLENOL 325MG325 MG PO; +VITAMIN D31000 IU PO; +ZOFRAN 4MG T4 MG/TAB PO
[2022-03-25 14:05] LABS: BASO % 0.2 % (0.0-2.0); EOS # 0.1 K/mm3 (0.0-0.7); EOS % 3.2 % (0.0-4.0); GRAN # 3.1 K/mm3 (1.4-6.5); HEMATOCRIT 32.4 % (37.0-47.0); LYMPH # 0.5 K/mm3 (1.2-3.4); LYMPH % 11.3 % (20.0-51.0); MEAN CELL VOLUME 98 fl (80.0-100.0); MEAN CORPUSCULAR HEMOGLOBIN 33 pg (27-31); MEAN CORPUSCULAR HGB CONC 34 g/dl (33.0-37.0); MEAN PLATELET VOLUME 10.2 fl (7.4-10.4); MONO # 0.6 K/mm3 (0.1-0.6); MONO % 13.8 % (1.7-9.3); PLATELET COUNT 198 K/mm3 (130-400); RED BLOOD COUNT 3.31 M/mm3 (4.10-5.30); REDCELL DISTRIBUTION WIDTH-CV 13.9 % (11.5-14.5)
[2022-03-25 14:15] LABS: CREATININE, serum 1.1 mg/dL (0.57-1.11)
== END ==
LOC: ZLAB.STJ 13:59
PROVIDERS: Internal Medicine Rheumatology
DX: E03.9 Hypothyroidism, unspecified (principal); D64.9 Anemia, unspecified

== ENCOUNTER → 2022-04-07 | Outpatient (CLI) | payer MEDICARE, MEDICAID | LOC: ZLAB.STJ 11:04 | DX: E11.9 Type 2 diabetes mellitus without complications (principal) ==

== ENCOUNTER → 2022-04-15 | Outpatient (CLI) | payer MEDICARE, MEDICAID ==
[2022-04-15 23:25] LABS: COLLECTION METHOD CLEAN CATCH
[2022-04-15 23:34] LABS: MUCOUS Present (NOT PRESENT); URINE BACTERIA Rare /hpf (NONE SEEN); URINE RBC 0-2 /hpf (0-2)
[2022-04-15 23:37] LABS: PH 5.5 (5.0-8.5); URINE APPEARANCE Clear (CLEAR/HAZY); URINE BLOOD Negative (NEGATIVE); URINE COLOR Yellow (YELLOW); URINE GLUCOSE Negative (NEGATIVE); URINE KETONE Negative (NEGATIVE); URINE NITRATE Negative (NEGATIVE); URINE PROTEIN(semi-quant) Negative (NEGATIVE); URINE UROBILINOGEN 0.2 E.U/dL (0.2-1.0)
== END ==
LOC: ZLAB.STJ 17:34
PROVIDERS: Internal Medicine
DX: N39.0 Urinary tract infection, site not specified (principal)

== ENCOUNTER → 2022-04-16 | Outpatient (CLI) | payer MEDICARE, MEDICAID ==
[2022-04-16 15:31] LABS: HEMOGLOBIN 10.5 g/dl (12.5-16.0); MEAN CELL VOLUME 95 fl (80.0-100.0); MEAN CORPUSCULAR HEMOGLOBIN 33 pg (27-31); MEAN CORPUSCULAR HGB CONC 35 g/dl (33.0-37.0); MEAN PLATELET VOLUME 12.2 fl (7.4-10.4); PLATELET COUNT 154 K/mm3 (130-400)
[2022-04-16 15:33] LABS: HEMATOCRIT 30.4 % (37.0-47.0)
[2022-04-16 15:46] LABS: BILIRUBIN,TOTAL 0.6 mg/dL (0.2-1.2); CALCIUM 9.2 mg/dL (8.4-10.2); CREATININE, serum 1.08 mg/dL (0.57-1.11); POTASSIUM 4.2 mmol/L (3.5-4.5); TOTAL PROTEIN 7.1 gm/dL (6.2-8.1)
[2022-04-16 16:19] LABS: THYROID STIMULATING HORMONE 1.543 uIU/mL (0.350-4.940)
== END ==
LOC: ZLAB.STJ 15:14
PROVIDERS: Internal Medicine
DX: E03.9 Hypothyroidism, unspecified (principal); E11.9 Type 2 diabetes mellitus without complications

== ENCOUNTER → 2022-04-22 | Outpatient (CLI) | payer MEDICARE, MEDICAID ==
[2022-04-22 16:04] LABS: BASO % 0.7 % (0.0-2.0); EOS # 0.2 K/mm3 (0.0-0.7); EOS % 5.5 % (0.0-4.0); GRAN % 68.3 % (42.2-75.2); HEMOGLOBIN 10.7 g/dl (12.5-16.0); LYMPH # 0.5 K/mm3 (1.2-3.4); LYMPH % 10.2 % (20.0-51.0); MEAN CELL VOLUME 96 fl (80.0-100.0); MEAN CORPUSCULAR HEMOGLOBIN 33 pg (27-31); MEAN CORPUSCULAR HGB CONC 34 g/dl (33.0-37.0); MEAN PLATELET VOLUME 10.4 fl (7.4-10.4); MONO # 0.7 K/mm3 (0.1-0.6); MONO % 14.8 % (1.7-9.3); PLATELET COUNT 191 K/mm3 (130-400); RED BLOOD COUNT 3.26 M/mm3 (4.10-5.30); REDCELL DISTRIBUTION WIDTH-CV 14.2 % (11.5-14.5)
[2022-04-22 16:05] LABS: HEMATOCRIT 31.2 % (37.0-47.0)
[2022-04-22 16:18] LABS: CREATININE, serum 1.1 mg/dL (0.57-1.11)
== END ==
LOC: ZLAB.STJ 15:51
PROVIDERS: Internal Medicine Rheumatology
DX: R74.01 Elevation of levels of liver transaminase levels (principal); D64.9 Anemia, unspecified

== ENCOUNTER 2022-12-01 18:16 | Inpatient (IN) | payer MEDICARE, MEDICAID ==
[~2022-12-01] VITALS: Ht 170.2 cm; Wt 86.4 kg
[~2022-12-01 18:16] MED LIST changes: -PRIL40 PO; +PRILOSEC 20MG20 MG PO; -ZOFRAN 4MG T4 MG/TAB PO; +ZOFRAN ODT4 MG PO
[2022-12-01 18:54] LABS: ARTERIAL BLD GAS O2 SATURATION 92.9 % (92-100); ARTERIAL BLD GAS TCO2 CT 23.3; ARTERIAL BLOOD GAS BASE EXCESS -0.4 (-2-2); ARTERIAL BLOOD GAS HCO3 22.4 meq/L (22-26); ARTERIAL BLOOD GAS PO2 64.3 mmHg (80-100); ARTERIAL BLOOD GAS pH 7.48 (7.35-7.45)
[2022-12-01 19:26] LABS: BASO % 0.3 % (0.0-2.0); EOS # 0.1 K/mm3 (0.0-0.7); EOS % 0.8 % (0.0-4.0); GRAN # 5.4 K/mm3 (1.4-6.5); GRAN % 82.4 % (42.2-75.2); HEMOGLOBIN 11.7 g/dl (12.5-16.0); LYMPH # 0.3 K/mm3 (1.2-3.4); MEAN CELL VOLUME 95 fl (80.0-100.0); MEAN CORPUSCULAR HEMOGLOBIN 33 pg (27-31); MEAN CORPUSCULAR HGB CONC 35 g/dl (33.0-37.0); MEAN PLATELET VOLUME 10.2 fl (7.4-10.4); MONO # 0.7 K/mm3 (0.1-0.6); MONO % 11.3 % (1.7-9.3); PLATELET COUNT 163 K/mm3 (130-400); RED BLOOD COUNT 3.53 M/mm3 (4.10-5.30); REDCELL DISTRIBUTION WIDTH-CV 13.9 % (11.5-14.5)
[2022-12-01 19:28] LABS: HEMATOCRIT 33.5 % (37.0-47.0)
[2022-12-01 19:40] LABS: ALBUMIN 3.6 gm/dL (3.4-4.8); BILIRUBIN,TOTAL 0.6 mg/dL (0.2-1.2); CREATININE, serum 1.29 mg/dL (0.57-1.11); POTASSIUM 3.6 mmol/L (3.5-4.5); TOTAL PROTEIN 8.1 gm/dL (6.2-8.1)
[2022-12-01 19:46] LABS: TROPONIN-I 0.019 ng/mL (0.00-0.033)
[2022-12-01 19:53] LABS: COLLECTION METHOD CATHETER
[2022-12-01 20:06] LABS: URINE APPEARANCE Cloudy (CLEAR/HAZY); URINE COLOR Yellow (YELLOW)
[2022-12-01 20:07] LABS: URINE BLOOD 1+ (NEGATIVE); URINE GLUCOSE Negative (NEGATIVE); URINE KETONE Negative (NEGATIVE); URINE NITRATE Negative (NEGATIVE); URINE PROTEIN(semi-quant) 1+ (NEGATIVE); URINE UROBILINOGEN 0.2 E.U/dL (0.2-1.0)
[2022-12-01 20:09] LABS: SQUAMOUS EPITHELIAL 0-2 /hpf (0-10); URINE BACTERIA Moderate /hpf (NONE SEEN); URINE RBC >50 /hpf (0-2)
[2022-12-01 23:03] VITALS: BP 133/69; PULSE 51; TEMP 97.9
[2022-12-02] VITALS (9 sets, daily range): BP systolic 121–146; BP diastolic 46–59; PULSE 45–61; TEMP 97.6–99.2
[2022-12-02] MEDS ORDERED: ATARAX 25MG25 MG/TAB PO (00:03)
[2022-12-02 06:48] LABS: CALCIUM 8.2 mg/dL (8.4-10.2); CREATININE, serum 1.15 mg/dL (0.57-1.11); MAGNESIUM 1.4 mg/dL (1.6-2.6); POTASSIUM 3.5 mmol/L (3.5-4.5)
[2022-12-02 06:54] LABS: BASO % 0.3 % (0.0-2.0); EOS # 0.1 K/mm3 (0.0-0.7); EOS % 2.1 % (0.0-4.0); GRAN # 2.4 K/mm3 (1.4-6.5); GRAN % 71.9 % (42.2-75.2); HEMOGLOBIN 10.6 g/dl (12.5-16.0); LYMPH # 0.4 K/mm3 (1.2-3.4); LYMPH % 11.2 % (20.0-51.0); MEAN CELL VOLUME 96 fl (80.0-100.0); MEAN CORPUSCULAR HEMOGLOBIN 33 pg (27-31); MEAN CORPUSCULAR HGB CONC 34 g/dl (33.0-37.0); MEAN PLATELET VOLUME 10.8 fl (7.4-10.4); MONO # 0.5 K/mm3 (0.1-0.6); MONO % 14.2 % (1.7-9.3); PLATELET COUNT 103 K/mm3 (130-400); RED BLOOD COUNT 3.21 M/mm3 (4.10-5.30); REDCELL DISTRIBUTION WIDTH-CV 13.8 % (11.5-14.5)
[2022-12-02 06:56] LABS: HEMATOCRIT 30.8 % (37.0-47.0)
--- NOTE | 2022-12-02 08:57 | NUR ---
The patient was admitted for being unresponsive at the [facility]. AYLA contacted the patient's son, Antione Hooker (ph#[phone]), to discuss discharge plan. The patient resides at [facility] for long-term care. Her PCP is Dr. Evon Barajas and her DPOA-HC is in EMR. It designates her children: Antione ([place]), Matt ([place]),and Vy. Antione reports that Vy is in the [facility] as well and not able to be involved. Antione reports that the plan is for the patient to return back to [facility] upon discharge. AYLA contacted and faxed updates to Sunny at [facility]. *Discharge plan: [facility] LTC/SNF*
[2022-12-02] MEDS ORDERED: MAALOX ADVANCE148 ML PO (09:39)
[2022-12-02] MEDS ORDERED: ATARAX 10MG10 MG/TAB PO (09:40)
[2022-12-02] MEDS ORDERED: MUCINEX 60600 MG/TA1 PO (09:41)
--- NOTE | 2022-12-02 10:24 | NUR ---
Initial visit; Patient was somewhat drowsy when Heel Emery Buffer arrived though when Heel Emery Buffer introduced herself patient immediately asked if Heel Emery Buffer would pray for her now. Heel Emery Buffer offered comfort, encouragement and prayer which pleased Riya. Heel Emery Buffer will continue to look in on patient while she is here.
--- NOTE | 2022-12-02 11:27 | NUR ---
Pt is awake and laying in bed. Pt is alert & oriented. Fine crackles noted on NERIS lower bases upon lung auscultation. Telemetry remains on with SB. NS infusing at 75mL/hr in R forearm. INT in R AC patent, no edema or redness, mina wrap in place. Feldman catheter remains in place. Rad/ped pulses strong. No request at this time. Call light within reach. Bed alarm on.
--- NOTE | 2022-12-02 11:27 | NUR ---
SHIFT ASSESSMENT COMPLETED AND MORNING MEDICATIONS ADMINISTERED PER ORDER. PATIENT IS ALERT AND ORIENTED. DENIES PAIN. LUNGS DIMINISHED WITH FINE CRACKLES TO BASES AND WHEEZING. ABD SOFT AND NON-TENDER. ON IV FLUIDS, TOLERATING WELL. DENIES NEEDS. REPORT GIVEN TO DAVID MUELLER WHO IS ASSUMING CARE FOR THE PATIENT.
--- NOTE | 2022-12-02 21:30 | NUR ---
SHIFT REPORT FROM AMI HERNANDEZ. PATIENT IN BED ON ROOM ENTRY. ALERT AND ORIENTED. FAMILY AT BEDSIDE. HS MEDS PER EMAR. DENIES PAIN. EDMOND TO DD WITH CLEAR YELLOW OUTPUT. TELE READING SINUS SOHAIL 53 AND METOPROLOL HELD PER PROTOCOL. IVF INFUSING WITHOUT ISSUE. DENIES ADDITIONAL NEEDS. CALL LIGHT IN REACH. BED ALARM ON.
[2022-12-03] VITALS (7 sets, daily range): BP systolic 143–156; BP diastolic 47–89; PULSE 54–57; TEMP 99–99.3
[2022-12-03 07:28] LABS: HEMATOCRIT 28.5 % (37.0-47.0); HEMOGLOBIN 10.2 g/dl (12.5-16.0); MEAN CELL VOLUME 93 fl (80.0-100.0); MEAN CORPUSCULAR HEMOGLOBIN 33 pg (27-31); MEAN CORPUSCULAR HGB CONC 36 g/dl (33.0-37.0); MEAN PLATELET VOLUME 10.7 fl (7.4-10.4); PLATELET COUNT 151 K/mm3 (130-400); RED BLOOD COUNT 3.07 M/mm3 (4.10-5.30); REDCELL DISTRIBUTION WIDTH-CV 13.7 % (11.5-14.5)
[2022-12-03 07:29] LABS: CALCIUM 7.9 mg/dL (8.4-10.2); CREATININE, serum 0.97 mg/dL (0.57-1.11); POTASSIUM 3.7 mmol/L (3.5-4.5)
[2022-12-03] MEDS ORDERED: CEFTIN500 MG PO (08:23)
--- NOTE | 2022-12-03 08:50 | NUR ---
pt resting in bed w breakfast. vss and tele in place. metoprolol held for pulse <60. a non productive cough is present. sloan to dd w clear yellow urine output. bs 92. plan is for pt to return to [facility] today. pt denies needs at this time. call light in reach.
--- NOTE | 2022-12-03 09:38 | NUR ---
Patient to discharge back to [facility] via [facility] today. Sunny with [facility] contacted and notified. Rach updated. Clinical updates and discharge orders sent to Sunny. Patient presented with MCR.IM form. Education provided and patient verbalizes her agreement with discharging back to the [facility] later. Signed original placed in the patients chart and copy provided back to the patient.
--- NOTE | 2022-12-03 10:10 | NUR ---
sloan discontinued per dr orders without difficulty
--- NOTE | 2022-12-03 12:24 | NUR ---
IVs discontinued for discharge. pt dressed and ready for pickup at approx 1300.
--- NOTE | 2022-12-03 12:24 | NUR ---
Transportation arranged for the patient to be picked up at 1300. Patient, patients RN and community health planning director updated. Phone call made to patients son to update on discharge and continuous pickling line pickler time. Discharge plan: [place] [facility] @1300
--- NOTE | 2022-12-03 13:06 | NUR ---
[facility] transportation here for pt. all belongings and discharge paperwork left with pt.
[2022-12-11] MEDS ORDERED: HYDROCIL INSTA300 GM PO (08:58)
[2022-12-11] MEDS ORDERED: MAG-OX 400400 MG/TAB PO (09:00)
[2022-12-11] MEDS ORDERED: MIRALAX PA17 GM/Dose PO (09:00)
== END 2022-12-03 13:08 | DRG 189 ==
LOC: COL.ER 18:16 → SURG 20:54
PROVIDERS: Internal Medicine; Nurse Practitioner Primary Care; Student in an Organized Health Care Education/Training Program; ADMIT Student in an Organized Health Care Education/Training Program
DX: J96.01 Acute respiratory failure with hypoxia (principal); N39.0 Urinary tract infection, site not specified; K21.9 Gastro-esophageal reflux disease without esophagitis; G25.81 Restless legs syndrome; B96.20 Unspecified Escherichia coli [E. coli] as the cause of diseases classified elsewhere; R91.1 Solitary pulmonary nodule; Z66 Do not resuscitate; E03.9 Hypothyroidism, unspecified; M35.00 Sjogren syndrome, unspecified; E78.5 Hyperlipidemia, unspecified; M81.0 Age-related osteoporosis without current pathological fracture; E11.22 Type 2 diabetes mellitus with diabetic chronic kidney disease; I12.9 Hypertensive chronic kidney disease with stage 1 through stage 4 chronic kidney disease, or unspecified chronic kidney disease; K80.20 Calculus of gallbladder without cholecystitis without obstruction; R00.1 Bradycardia, unspecified; K44.9 Diaphragmatic hernia without obstruction or gangrene; N18.9 Chronic kidney disease, unspecified; Z20.822 Contact with and (suspected) exposure to COVID-19; Z88.0 Allergy status to penicillin; Z88.8 Allergy status to other drugs, medicaments and biological substances; Z79.890 Hormone replacement therapy; Z79.899 Other long term (current) drug therapy
CPT/HCPCS: J0696; J1644; J3475; J7030; J7120; Q9967

== ENCOUNTER → 2023-11-18 | Outpatient (CLI) | payer MEDICARE, MEDICAID ==
[~2023-11-18] MED LIST changes: +ATARAX 10MG10 MG/TAB PO; +ATARAX 25MG25 MG/TAB PO; +BACTRIM DS 8001 TAB PO; +CEFTIN500 MG PO; +MAALOX ADVANCE148 ML PO; +MAG-OX 400400 MG/TAB PO; +MUCINEX 60600 MG/TA1 PO
== END ==
LOC: COL.RAD 12:46
DX: K21.9 Gastro-esophageal reflux disease without esophagitis (principal); K44.9 Diaphragmatic hernia without obstruction or gangrene